=== PATIENT | female | born 1985 | race Asian ===

== ENCOUNTER 2020-03-04 06:43 | Emergency (ER) | payer OTHER ==
[~2020-03-04] VITALS: Ht 160 cm; Wt 54.0 kg
[2020-03-04] MEDS ORDERED: SODIUM CHLORIDE 0.9% 1,000 ML IV ONE (07:00)
[2020-03-04] MEDS ORDERED: LORAZEPAM 2MG/ML CPJ IV ONE (07:00)
[2020-03-04 07:12] LABS: BASOPHILS % 0.8 % (0.0-2.0); HEMATOCRIT. 38.1 % (36.0-48.0); HEMOGLOBIN. 12.7 g/dL (12.0-16.0); MEAN CORPUSCULAR VOLUME 86.7 fL (81.0-99.0); MONOCYTES % 5.5 % (2.0-8.0); NEUTROPHILS % 64.7 % (40.0-76.0); PLATELET 374 x1000/uL (130-400); RED BLOOD CELL COUNT 4.39 mill/uL (4.2-5.4); RED CELL DISTRIBUTION WIDTH 14.2 % (11.6-14.6)
[2020-03-04] MEDS ORDERED: IOHEXOL-350 100 ML BOTTLE ONE (07:12)
[2020-03-04 07:14] LABS: CHLORIDE 108 mEq/L (98-107)
[2020-03-04 07:17] LABS: INR 0.9; PROTHROMBIN TIME 9.7 sec (9.6-11.0)
[2020-03-04 07:20] LABS: ETHANOL BLOOD 190 mg/dL
[2020-03-04 07:22] LABS: LDL CHOLESTEROL 138 mg/dL (5-100)
[2020-03-04 07:23] LABS: CREATINE KINASE 117 IU/L (26-192)
[2020-03-04 07:30] LABS: HCG SCREEN NEGATIVE
[2020-03-04] MEDS ORDERED: POTASSIUM CHLORIDE 20MEQ TABLET SR PO ONE (08:00)
[2020-03-04 08:43] LABS: CLARITY URINE CLEAR (CLEAR); COLOR URINE YELLOW (YELLOW); KETONES URINE NEGATIVE (NEGATIVE); LEUKOCYTE ESTERASE URINE TRACE (NEGATIVE); NITRITE URINE NEGATIVE (NEGATIVE); OCCULT BLOOD URINE NEGATIVE (NEGATIVE); PROTEIN URINE NEGATIVE (NEGATIVE); SPECIFIC GRAVITY URINE 1.008 (1.005-1.030); UROBILINOGEN URINE 0.2 E.U./dL (0.2-1.0)
[2020-03-04 08:46] VITALS: BP 158/94
[2020-03-04 09:09] LABS: *COCAINE SCREEN URINE NEGATIVE (NEGATIVE); CANNABINOID URINE SCREEN NEGATIVE (NEGATIVE); METHADONE URINE SCREEN NEGATIVE (NEGATIVE); OPIATES URINE SCREEN NEGATIVE (NEGATIVE); PHENCYCLIDINE URINE SCREEN NEGATIVE (NEGATIVE)
[2020-03-04 09:10] LABS: *BARBITURATES SCREEN URINE NEGATIVE (NEGATIVE); *BENZODIAZEPINES SCREEN URINE NEGATIVE (NEGATIVE)
[2020-03-04 09:11] LABS: *AMPHETAMINES SCREEN URINE PRESUMTIVE POSITIVE (NEGATIVE)
== END 2020-03-04 08:54 | disposition left against medical advice (07) ==
LOC: ER 06:43 → EDBEDREQ 07:55 → CANRESERV 08:26 → ENRESERV 08:26 → ER 08:54 → CANBEDREQ 08:59
DX: I63.9 Cerebral infarction, unspecified (principal); R47.1 Dysarthria and anarthria; I16.0 Hypertensive urgency; I69.351 Hemiplegia and hemiparesis following cerebral infarction affecting right dominant side; R26.89 Other abnormalities of gait and mobility; R29.6 Repeated falls; F15.10 Other stimulant abuse, uncomplicated
CPT/HCPCS: 36415; 70450; 70496; 70498; 71045; 80053; 80305; 80320; 81003; 81025; 82550; 82962; 83690; 83721; 83880; 84484; 84703; 85025; 85610; 93005; 96361; 96374; 99285; J2060; J7030; Q9967; G0480

== ENCOUNTER 2022-02-12 14:30 | Emergency (ER) | payer MEDICARE, MEDICAID ==
[~2022-02-12] VITALS: Ht 157.5 cm; Wt 60.0 kg
[2022-02-12 14:46] VITALS: BP 138/89
== END 2022-02-12 23:00 | disposition left against medical advice (07) ==
LOC: ER 14:49
DX: Z53.21 Procedure and treatment not carried out due to patient leaving prior to being seen by health care provider (principal)